=== PATIENT | female | born 1990 | race Caucasian/White ===

== ENCOUNTER 2018-12-31 19:48 | Emergency (ER) | payer OTHER ==
[~2018-12-31] VITALS: Ht 162.6 cm; Wt 67.3 kg
[~2018-12-31 19:48] MED LIST: NOCURR
[2018-12-31] MEDS ORDERED: IPRA4AER IH (19:59)
[2019-01-01] MEDS ORDERED: ONDANSETRON HCL 4 MG TABLET PO ONE (01:15)
[2019-01-01] MEDS ORDERED: HYDROCODONE/ACETAMINOPHEN 5-325 MG TABLET PO ONE (01:15)
[2019-01-01] MEDS ORDERED: IBUPROFEN 600 MG TABLET PO ONE (01:15)
[2019-01-01 01:40] VITALS: BP 130/60
== END 2019-01-01 02:03 | disposition home or self-care (01) ==
LOC: EMS 19:49
DX: F07.81 Postconcussional syndrome (principal); R11.0 Nausea; J45.909 Unspecified asthma, uncomplicated; G43.909 Migraine, unspecified, not intractable, without status migrainosus; Z88.8 Allergy status to other drugs, medicaments and biological substances
CPT/HCPCS: 70450; 81025; 99284; Q0162